=== PATIENT | female | born 1945 | race Caucasian/White ===

== ENCOUNTER 2017-12-20 09:57 | Emergency (ER) | payer MEDICARE, OTHER ==
[~2017-12-20] VITALS: Ht 160 cm; Wt 102.1 kg
[2017-12-20] MEDS ORDERED: MECLIZINE HCL25 MG PO (15:06)
== END 2017-12-20 15:16 | disposition home or self-care (01) ==
LOC: ED 09:57
DX: R10.11 Right upper quadrant pain (principal); E86.0 Dehydration; R42 Dizziness and giddiness; K76.0 Fatty (change of) liver, not elsewhere classified; E78.00 Pure hypercholesterolemia, unspecified; I10 Essential (primary) hypertension; Z88.2 Allergy status to sulfonamides
CPT/HCPCS: 71046; 76705; 80053; 81001; 83690; 85025; 96361; 96374; 99284; J2405; J7030